=== PATIENT | female | born 1945 | race Caucasian/White ===

== ENCOUNTER 2016-05-26 17:41 | Inpatient (IN) | payer OTHER ==
--- NOTE | ~2016-05-26 | IDS ---
Interim Discharge Summary [facility] [address] [place]. [address] NAME: KRISTEN EDMONDSON : 45 STATUS : ADM IN PAT#: [id number] AGE: 70 ADM/REG DATE : 05/26/16 MR#: [id number] REPORT SERV DATE: 06/02/16 DICTATED BY: NIKUNJ MONTERO DATE: 06/02/16 REPORT STATUS : Draft TRANSCRIBED BY: MODL DATE: 06/02/16 ADMISSION DATE: 05/26/2016 DISCHARGE DATE: REASON FOR ADMISSION: Acute hypoxic respiratory failure and acute on chronic COPD exacerbation. HPI: Please refer to Dr. Sousa's history and physical dated 05/26/2016 for complete details on the patient's admission. The patient was initially admitted to the Hospitalist Service for her acute on chronic COPD exacerbation and acute hypoxic and hypercapnic respiratory failure. HOSPITAL COURSE: She was admitted by Dr. Hannon and started on BiPAP along with steroids, nebulizer DuoNeb and Brovana. She was failing BiPAP and impending respiratory failure was occurring. She eventually got intubated that day and went to the intensive care unit. She was then extubated after a day and made into the intensive care unit until 05/29/2016. I assumed care of this patient on 05/29/2016 on the floor as her COPD exacerbation had been resolving. However, she was on 5 L of nasal cannula and now is able to wean it down to about 2-3 L nasal cannula. She continues to have some wheezing on exam, but it is gotten better and she definitely has more improved aeration. Every day she is feeling stronger, and able to walk further without feeling short of breath. She does ambulate in her room. She is currently on 40 mg of prednisone along with DuoNebs and Dulera. She is recovering slowly, and we anticipate potentially discharging her on Thursday. She had an echocardiogram, which did not show any evidence of congestive heart failure. ABG done at the time of dictation showed a pH of 739, pCO2 of 66, pO2 of 63 on 3 L nasal cannula. Chest x-ray was improving. Further disposition per oncoming hospitalist. However, disposition currently will be to discharge home approximately on Thursday and the patient will most likely meet criteria for home O2. She will need to follow up with Pulmonary Medicine. DISCHARGE DIAGNOSES: 1. Acute hypoxic respiratory, slowly resolving; acute on chronic obstructive pulmonary disease exacerbation, slowly resolving. Now currently on 3 L nasal cannula. 2. Hypertension. 3. Hyperglycemia, resolved. 4. Tobacco abuse prior to hospitalization, but has not required any tobacco during hospitalization. PROCEDURES: Include echocardiogram, chest x-ray, KUB, intensive care unit monitoring, intubation, and extubation. MINA/KELBY Nikunj Montero MD Interim Discharge Summary [address] [address] NAME: KRISTEN EDMONDSON : 45 STATUS : ADM IN [facility]#: [id number] AGE: 70 ADM/REG DATE : 05/26/16 MR#: [id number] REPORT SERV DATE: 06/02/16 DICTATED BY: NIKUNJ MONTERO DATE: 06/02/16 REPORT STATUS : Draft TRANSCRIBED BY: KELBY DATE: 06/02/16 / [id number] CC: Taco Sousa M.D.
--- NOTE | ~2016-05-26 | HP ---
History And Physical [facility] [address] [place]. [address] NAME: KRISTEN EDMONDSON : 45 STATUS : ADM IN [facility]#: [id number] AGE: 70 ADM/REG DATE : 05/26/16 MR#: [id number] REPORT SERV DATE: 05/27/16 DICTATED BY: CARITO SOUSA DATE: 05/26/16 REPORT STATUS : Draft TRANSCRIBED BY: MODL DATE: 05/26/16 DATE OF ADMISSION: 05/26/2016 TIME: 1747 hours. Seen in Medical ICU bed 8. HISTORY OF PRESENT ILLNESS: Ms. Edmondson is a 70-year-old white female with known COPD, who had presented to [facility] with increasing shortness of breath and hypercapnic respiratory failure. Was originally placed on BiPAP, given bronchodilator treatment along with Solu-Medrol therapy for her wheezing. She had persistent cough over the past several days. She is still an active smoker of one to two packs per day. She had progressive symptoms throughout the week. She eventually required intubation and mechanical ventilation. PAST MEDICAL HISTORY: Significant for COPD, status post oophorectomy, status post cholecystectomy in the past. She had degenerative disk disease, cholecystectomy, appendectomy, and history hypertension. She had previous tonsillectomy. HOME MEDICATIONS: Included losartan and hydrochlorothiazide 50 and 12.5, albuterol MDI, and aspirin 81 mg p.o. daily. The patient apparently also has a history of previous CHF and ME, type 2 diabetes. All other systems reviewed apparently was negative. No significant diarrhea. FAMILY HISTORY: Noncontributory. PHYSICAL EXAMINATION: VITAL SIGNS: Blood pressure 129/70, pulse 82, temperature 97. GENERAL: The patient is orally intubated. HEENT: Head is normocephalic. Sclerae and conjunctivae are clear. NECK: Large. CHEST: Decreased breath sounds. Occasional wheeze. CARDIAC: S1 and S2. I could not hear murmurs or gallops. ABDOMEN: Mildly obese, nontender. No masses or organomegaly. EXTREMITIES: No clubbing, cyanosis, or edema. Pulses are palpable. NEUROLOGIC: The patient is currently sedated. LABORATORY DATA: Shows sodium 130, potassium 4.0, chloride 88, CO2 of 34, BUN 17, creatinine 0.97, glucose 124, magnesium 1.4, troponin 0.13, calcium 8.5. CBC shows an H and H of 14.2 and 46.0, white count 7800, MCV 102, platelets 202, PTT 37.9, INR 1.1. BNP is 263. Initial arterial blood gas in the a.m. was 7.30, pCO2 of 74, PO2 of 63 on 40% and pH of 7.27, pCO2 of 72, PO2 of 100 on 50%, 16/6 BiPAP rate of 18. Chest x-ray showed satisfactory position of ET tube. No acute cardiopulmonary disease. IMPRESSION: History And Physical [address] [address] NAME: KRISTEN EDMONDSON : 45 STATUS : ADM IN [facility]#: [id number] AGE: 70 ADM/REG DATE : 05/26/16 MR#: [id number] REPORT SERV DATE: 05/27/16 DICTATED BY: CARITO SOUSA DATE: 05/26/16 REPORT STATUS : Draft TRANSCRIBED BY: KELBY DATE: 05/26/16 1. Acute exacerbation of chronic obstructive pulmonary disease. 2. Kyphoscoliosis. 3. History of congestive heart failure. 4. Previous myocardial infarction. 5. Diabetes. PLAN: Continue IV Solu-Medrol and bronchodilator therapy. We will get procalcitonin testing, urinary Legionella, and urinary streptococcal antigen testing. Therapy for DVT prophylaxis. Attempt to wean. ROSIE/KELBY Carito Sousa M.D. / [id number] CC: Carito Sousa M.D.
--- NOTE | ~2016-05-26 | DS ---
Discharge Summary [facility] [address] [place]. [address] NAME: KRISTEN EDMONDSON : 45 STATUS : DIS IN PAT#: [id number] AGE: 70 ADM/REG DATE : 05/26/16 MR#: [id number] REPORT SERV DATE: 06/09/16 DICTATED BY: NELDA CASTRO DATE: 06/06/16 REPORT STATUS : Draft TRANSCRIBED BY: MODL DATE: 06/06/16 ADMISSION DATE: 05/26/2016 DISCHARGE DATE: 06/06/2016 DISCHARGE DIAGNOSES: 1. Acute hypoxic respiratory failure. The patient is requiring home oxygen at 2 L. 2. Tobacco abuse. 3. Critical chronic obstructive pulmonary disease exacerbation. 4. Hypertension. 5. Question of volume overload. HISTORY OF PRESENT ILLNESS: This is a 70-year-old female patient, who has been healthy with a history of COPD, who is a current active smoker, came to the hospital with short of breath. She went into the hypercapnic and hypoxic respiratory failure. Please see dictated H and P done by Dr. Hannon and Dr. Sousa. HOSPITAL COURSE: Please see dictated interim discharge summary done by Dr. Arana. The patient was treated at the ICU for respiratory failure with mechanical ventilation. The patient is extubated and transferred out of the unit on 05/29/2016. She has been treated with supportive care for the respiratory failure with the oxygen and maximized bronchodilator and systemic steroid. She had a slow improvement. Toward the last days of the hospitalization, she was more proper found to be hypoxic and was treated with doses of IV diuretics and improved. However, she is still requiring 2 L of oxygen use. Her chest x- ray has been repeated and it showed improvement. She is tolerating all these treatment and she is not requesting any more nicotine replacement therapy. All inhaler treatment for the COPD clinically was new to her. We will make an appointment with Pulmonary outpatient for referral and she will need a further evaluation about her lung disease and heart disease. Overall, tolerated all these treatment and had a long hospitalization, but improved. She is ambulating without any problem, but requiring home oxygen at 2 L with a good maintaining O2 saturation. Overall, the patient has improved and maximized inpatient benefit, will be discharged to home with home oxygen, and also the patient will need to follow up with pulmonary Clinic. DISCHARGE MEDICATIONS: Continue the Flonase twice a day, continue the high Hyzaar 50/12.5 mg once a day, tapering dose of prednisone, continue Dulera 200/5 twice a day and aspirin 81 mg once a day, and I will like to continue Lasix 40 mg and potassium 20 mEq for Thursday, Thursday, and Thursday. TIME SPENT: More than 30 minutes on discharge coordination education. Had a discussion regarding smoking cessation. Discharge Summary [address] [address] NAME: KRISTEN EDMONDSON : 45 STATUS : DIS IN PAT#: [id number] AGE: 70 ADM/REG DATE : 05/26/16 MR#: [id number] REPORT SERV DATE: 06/09/16 DICTATED BY: NELDA CASTRO DATE: 06/06/16 REPORT STATUS : Draft TRANSCRIBED BY: KELBY DATE: 06/06/16 JORGE/KELBY Nelda Castro M.D. / [id number] CC: Alonso Ramirez MD Pulmonary Clinic
[~2016-05-26 17:41] MED LIST: ASAB PO; AVALIDE1 TAB PO; HALF81 PO; HYZAAR 50/12.51 TAB PO; HYZAAR1 TAB PO; P20 PO; PROAIR HFA INH; TRAZ50 PO
[2016-05-26 17:58] LABS: ALLENS TEST Pos; CARBOXYHEMOGLOBIN 1.5 % (0-3); HCO3 (ACTUAL BICARBONATE) 32.1 MEQ/L (23-27); HEMOBLOGIN CONTENT 13.3 G/DL (12-16); INSTRUMENT SERIAL # 8083; METHEMOGLOBIN 0.1 % (0-3); MODE CMV; O2 CONTENT 17.7 VOL% (18-24); OPERATOR ID 14382; PCO2 (CO2 TENSION) 73 MMHG (35-45); PO2 (O2 TENSION) 88 MMHG (79-93); SAMPLE Arterial; TIDAL VOLUME 500 ML; pH 7.26 (7.37-7.43)
[2016-05-26 20:04] LABS: FREE T4 1.04 NG/DL (0.76-1.46)
[2016-05-26 20:07] LABS: ULTRASENSITIVE TSH 0.828 MCIU/ML (0.358-3.740)
[2016-05-27 05:07] LABS: BASOPHILS 0.2 %; BASOPHILS ABSOLUTE 0.01 10/3/uL (0.0-0.16); EOSINOPHILS 0 %; HEMOGLOBIN 13.6 g/dL (12.0-16.0); IMMATURE GRANULOCYTES 0.2 %; IMMATURE GRANULOCYTES ABSOLUTE 0.01 10/3/uL (0.0-0.11); LYMPHOCYTES 9.9 %; LYMPHOCYTES ABSOLUTE 0.42 10/3/uL (0.67-4.30); MEAN CORPUS HGB CONC 32.4 g/dL (32.0-36.0); MEAN CORPUSCULAR HEMOGLOB 32.9 pg (26.0-34.0); MEAN CORPUSCULAR VOLUME 101.4 fL (80-100); MEAN PLATELET VOLUME 10.2 fL (9.2-13.0); MONOCYTES 3.8 %; MONOCYTES ABSOLUTE 0.16 10/3/uL (0.21-1.20); NEUTROPHILS 85.9 %; NEUTROPHILS ABSOLUTE 3.66 10/3/uL (2.02-8.40); PLATELET COUNT 163 10/3/uL (150-400); RBC DISTRIBUTION WIDTH 14.1 % (12.0-16.0); RED CELL COUNT 4.14 10/6/uL (4.0-5.6)
[2016-05-27 05:08] LABS: MANUAL DIFF NO %; WHITE BLOOD CELLS 4.3 10/3/uL (4.5-10.5)
[2016-05-27 05:37] LABS: CALCIUM, SERUM 8.1 MG/DL (8.5-10.4); CHLORIDE, SERUM 94 MMOL/L (96-112); CREATININE 1.08 MG/DL (0.55-1.02); GFR AFRICAN AMERICAN 60 ML/MIN (>=60); GFR NON AFRICAN AMERICAN 52 ML/MIN (>=60); GLUCOSE, SERUM 143 MG/DL (60-99); POTASSIUM, SERUM 3.5 MMOL/L (3.5-5.3); SODIUM, SERUM 134 MMOL/L (135-148)
[2016-05-27 05:38] LABS: BUN (BLOOD UREA NITROGEN) 25 MG/DL (6-23); CO2 (CARBON DIOXIDE) 29 MMOL/L (24-34)
[2016-05-27 07:34] LABS: ALLENS TEST Pos; BE (BASE EXCESS) 1.7 MEQ/L (0 +/- 2.5); CARBOXYHEMOGLOBIN 1.4 % (0-3); HCO3 (ACTUAL BICARBONATE) 27.9 MEQ/L (23-27); HEMOBLOGIN CONTENT 13.8 G/DL (12-16); INSTRUMENT SERIAL # 8083; METHEMOGLOBIN 0.2 % (0-3); MODE CMV; O2 CONTENT 18.8 VOL% (18-24); OPERATOR ID 14382; PCO2 (CO2 TENSION) 50 MMHG (35-45); PO2 (O2 TENSION) 103 MMHG (79-93); SAMPLE Arterial; TIDAL VOLUME 500 ML; pH 7.36 (7.37-7.43)
[2016-05-28 04:37] LABS: BASOPHILS 0.1 %; BASOPHILS ABSOLUTE 0.01 10/3/uL (0.0-0.16); EOSINOPHILS 0 %; HEMATOCRIT 43.4 % (36.0-48.0); HEMOGLOBIN 13.5 g/dL (12.0-16.0); IMMATURE GRANULOCYTES 0.7 %; IMMATURE GRANULOCYTES ABSOLUTE 0.06 10/3/uL (0.0-0.11); LYMPHOCYTES 4.3 %; LYMPHOCYTES ABSOLUTE 0.37 10/3/uL (0.67-4.30); MANUAL DIFF NO %; MEAN CORPUS HGB CONC 31.1 g/dL (32.0-36.0); MEAN CORPUSCULAR HEMOGLOB 32.8 pg (26.0-34.0); MEAN CORPUSCULAR VOLUME 105.3 fL (80-100); MEAN PLATELET VOLUME 10.4 fL (9.2-13.0); MONOCYTES 3.5 %; NEUTROPHILS 91.4 %; NEUTROPHILS ABSOLUTE 7.83 10/3/uL (2.02-8.40); PLATELET COUNT 176 10/3/uL (150-400); RBC DISTRIBUTION WIDTH 14.3 % (12.0-16.0); RED CELL COUNT 4.12 10/6/uL (4.0-5.6); WHITE BLOOD CELLS 8.6 10/3/uL (4.5-10.5)
[2016-05-28 04:54] LABS: BUN (BLOOD UREA NITROGEN) 24 MG/DL (6-23); CALCIUM, SERUM 8.4 MG/DL (8.5-10.4); CHLORIDE, SERUM 97 MMOL/L (96-112); CREATININE 0.75 MG/DL (0.55-1.02); GFR AFRICAN AMERICAN 94 ML/MIN (>=60); GFR NON AFRICAN AMERICAN 81 ML/MIN (>=60); SODIUM, SERUM 138 MMOL/L (135-148)
[2016-05-28 04:56] LABS: CO2 (CARBON DIOXIDE) 35 MMOL/L (24-34); GLUCOSE, SERUM 109 MG/DL (60-99); POTASSIUM, SERUM 4.4 MMOL/L (3.5-5.3)
[2016-05-29 05:09] LABS: BASOPHILS 0.2 %; BASOPHILS ABSOLUTE 0.01 10/3/uL (0.0-0.16); EOSINOPHILS 0 %; HEMATOCRIT 42.6 % (36.0-48.0); IMMATURE GRANULOCYTES 0.8 %; IMMATURE GRANULOCYTES ABSOLUTE 0.05 10/3/uL (0.0-0.11); LYMPHOCYTES 8.5 %; LYMPHOCYTES ABSOLUTE 0.52 10/3/uL (0.67-4.30); MEAN CORPUS HGB CONC 30.5 g/dL (32.0-36.0); MEAN CORPUSCULAR HEMOGLOB 31.4 pg (26.0-34.0); MEAN CORPUSCULAR VOLUME 102.9 fL (80-100); MEAN PLATELET VOLUME 10.4 fL (9.2-13.0); MONOCYTES 3.9 %; MONOCYTES ABSOLUTE 0.24 10/3/uL (0.21-1.20); NEUTROPHILS 86.6 %; NEUTROPHILS ABSOLUTE 5.28 10/3/uL (2.02-8.40); PLATELET COUNT 172 10/3/uL (150-400); RBC DISTRIBUTION WIDTH 14.1 % (12.0-16.0); RED CELL COUNT 4.14 10/6/uL (4.0-5.6); WHITE BLOOD CELLS 6.1 10/3/uL (4.5-10.5)
[2016-05-29 05:10] LABS: MANUAL DIFF NO %
[2016-05-29 05:27] LABS: BUN (BLOOD UREA NITROGEN) 24 MG/DL (6-23); CALCIUM, SERUM 8.5 MG/DL (8.5-10.4); CHLORIDE, SERUM 93 MMOL/L (96-112); CO2 (CARBON DIOXIDE) 38 MMOL/L (24-34); CREATININE 0.67 MG/DL (0.55-1.02); GFR AFRICAN AMERICAN 103 ML/MIN (>=60); GFR NON AFRICAN AMERICAN 89 ML/MIN (>=60); GLUCOSE, SERUM 130 MG/DL (60-99); PHOSPHORUS, SERUM 2.9 MG/DL (2.5-4.5); POTASSIUM, SERUM 3.8 MMOL/L (3.5-5.3); SODIUM, SERUM 138 MMOL/L (135-148)
[2016-05-30 04:44] LABS: ALLENS TEST Pos; DEVICE NC; HCO3 (ACTUAL BICARBONATE) 43.1 MEQ/L (23-27); HEMOBLOGIN CONTENT 14.7 G/DL (12-16); INSTRUMENT SERIAL # 35151; METHEMOGLOBIN 0.4 % (0-3); O2 CONTENT 19.8 VOL% (18-24); OPERATOR ID 32193; PCO2 (CO2 TENSION) 75 MMHG (35-45); PO2 (O2 TENSION) 90 MMHG (79-93); SAMPLE Arterial; pH 7.38 (7.37-7.43)
[2016-06-02 04:45] LABS: ALLENS TEST Pos; BE (BASE EXCESS) 10.9 MEQ/L (0 +/- 2.5); CARBOXYHEMOGLOBIN 1.6 % (0-3); DEVICE NC; HEMOBLOGIN CONTENT 15.5 G/DL (12-16); INSTRUMENT SERIAL # 8083; METHEMOGLOBIN 0.2 % (0-3); O2 CONTENT 19.5 VOL% (18-24); OPERATOR ID 17589; PCO2 (CO2 TENSION) 66 MMHG (35-45); PO2 (O2 TENSION) 63 MMHG (79-93); SAMPLE Arterial; pH 7.39 (7.37-7.43)
[2016-06-05 06:10] LABS: BASOPHILS 0.1 %; BASOPHILS ABSOLUTE 0.01 10/3/uL (0.0-0.16); EOSINOPHILS 0.8 %; EOSINOPHILS ABSOLUTE 0.06 10/3/uL (0.0-0.53); HEMATOCRIT 44.4 % (36.0-48.0); HEMOGLOBIN 14.5 g/dL (12.0-16.0); IMMATURE GRANULOCYTES 0.4 %; IMMATURE GRANULOCYTES ABSOLUTE 0.03 10/3/uL (0.0-0.11); LYMPHOCYTES 21.4 %; LYMPHOCYTES ABSOLUTE 1.66 10/3/uL (0.67-4.30); MEAN CORPUSCULAR HEMOGLOB 32.4 pg (26.0-34.0); MEAN PLATELET VOLUME 10.7 fL (9.2-13.0); MONOCYTES 14.7 %; MONOCYTES ABSOLUTE 1.14 10/3/uL (0.21-1.20); NEUTROPHILS 62.6 %; NEUTROPHILS ABSOLUTE 4.84 10/3/uL (2.02-8.40); PLATELET COUNT 216 10/3/uL (150-400); RBC DISTRIBUTION WIDTH 13.7 % (12.0-16.0); RED CELL COUNT 4.48 10/6/uL (4.0-5.6); WHITE BLOOD CELLS 7.7 10/3/uL (4.5-10.5)
[2016-06-05 06:13] LABS: MANUAL DIFF NO %; MEAN CORPUS HGB CONC 32.7 g/dL (32.0-36.0); MEAN CORPUSCULAR VOLUME 99.1 fL (80-100)
[2016-06-05 07:23] LABS: CALCIUM, SERUM 8.9 MG/DL (8.5-10.4); CHLORIDE, SERUM 90 MMOL/L (96-112); CO2 (CARBON DIOXIDE) 38 MMOL/L (24-34); CREATININE 0.87 MG/DL (0.55-1.02); GFR AFRICAN AMERICAN 78 ML/MIN (>=60); GFR NON AFRICAN AMERICAN 67 ML/MIN (>=60); POTASSIUM, SERUM 3.9 MMOL/L (3.5-5.3); SODIUM, SERUM 136 MMOL/L (135-148)
[2016-06-05 07:24] LABS: BUN (BLOOD UREA NITROGEN) 34 MG/DL (6-23); GLUCOSE, SERUM 99 MG/DL (60-99)
[2016-06-06 06:47] LABS: BUN (BLOOD UREA NITROGEN) 33 MG/DL (6-23); CALCIUM, SERUM 9.3 MG/DL (8.5-10.4); CHLORIDE, SERUM 95 MMOL/L (96-112); CO2 (CARBON DIOXIDE) 38 MMOL/L (24-34); CREATININE 0.92 MG/DL (0.55-1.02); GFR AFRICAN AMERICAN 73 ML/MIN (>=60); GFR NON AFRICAN AMERICAN 63 ML/MIN (>=60); GLUCOSE, SERUM 84 MG/DL (60-99); POTASSIUM, SERUM 4.4 MMOL/L (3.5-5.3); SODIUM, SERUM 138 MMOL/L (135-148)
[2016-06-06] MEDS ORDERED: FLONASE NAS (12:16)
[2016-06-06] MEDS ORDERED: CLARIT10 PO (12:18)
[2016-06-06] MEDS ORDERED: DULERA 200 MCG/13 GM INH (12:22)
[2016-06-06] MEDS ORDERED: L40 PO (12:23)
[2016-06-06] MEDS ORDERED: KLOR-CON M2020 MEQ PO (12:25)
[2016-06-06] MEDS ORDERED: P10 PO (12:27)
== END 2016-06-06 14:01 | disposition home or self-care (01) | DRG 208 ==
LOC: MIC 17:41 → 7NO 05-28 15:32
PROVIDERS: Internal Medicine; Internal Medicine Critical Care Medicine
PROC: 0BH17EZ Insertion of Endotracheal Airway into Trachea, Via Natural or Artificial Opening (ICD-10-PCS; principal; 2016-05-26)
PROC: 5A1935Z Respiratory Ventilation, Less than 24 Consecutive Hours (ICD-10-PCS; 2016-05-26)
DX: J96.01 Acute respiratory failure with hypoxia (principal); J44.1 Chronic obstructive pulmonary disease with (acute) exacerbation; E11.9 Type 2 diabetes mellitus without complications; M41.9 Scoliosis, unspecified; E66.01 Morbid (severe) obesity due to excess calories; J96.02 Acute respiratory failure with hypercapnia; I10 Essential (primary) hypertension; Z68.35 Body mass index [BMI] 35.0-35.9, adult; Z90.49 Acquired absence of other specified parts of digestive tract; F17.210 Nicotine dependence, cigarettes, uncomplicated; I25.2 Old myocardial infarction
CPT/HCPCS: 31500; 31720; 36600; 71010; 71020; 74000; 80048; 82607; 82746; 82805; 82962; 83036; 83735; 83880; 84100; 84439; 84443; 84484; 85025; 85610; 85730; 87040; 87641; 93005; 94002; 94003; 94640; 94660; 96374; 99291; 99292; A9270-GY; C8929; J0330; J0456; J1940; J2930; J3411; Q9957